=== PATIENT | male | born 1965 | race African-American/Black ===

== ENCOUNTER 2022-06-28 14:08 | Emergency (ER) | payer OTHER ==
[~2022-06-28] VITALS: Ht 177.8 cm; Wt 73.0 kg
[2022-06-28 14:30] VITALS: BP 140/86
[2022-06-28] MEDS ORDERED: ACETAMINOPHEN 325MG TABLET PO ONE (14:30)
[2022-06-28] MEDS ORDERED: MORPHINE SULFATE 10 MG/ML CPJ IM ONE (14:30)
[2022-06-28] MEDS ORDERED: ONDANSETRON 4MG ODT PO ONE (14:30)
[2022-06-28] MEDS ORDERED: LIDOCAINE HCL 1% 20ML VIAL (Pyxis) INJ INFIL ONE (15:45)
[2022-06-28] MEDS ORDERED: BACITRACIN ZINC OINT UDPKT TOP ONE (16:30)
[2022-06-28] MEDS ORDERED: HYDR-4001 MT (16:33)
== END 2022-06-28 16:44 | disposition home or self-care (01) ==
LOC: ER 14:08
DX: S63.272A Dislocation of unspecified interphalangeal joint of right middle finger, initial encounter (principal); S63.274A Dislocation of unspecified interphalangeal joint of right ring finger, initial encounter; E11.9 Type 2 diabetes mellitus without complications; F17.210 Nicotine dependence, cigarettes, uncomplicated; Z88.6 Allergy status to analgesic agent; Y04.0XXA Assault by unarmed brawl or fight, initial encounter; Y93.89 Activity, other specified; Y92.89 Other specified places as the place of occurrence of the external cause; Y99.8 Other external cause status
CPT/HCPCS: 26770; 73130; 96372; 99284; J2270; Q0162; Z7610